=== PATIENT | male | born 1985 | race Caucasian/White ===

== ENCOUNTER → 2019-09-19 | Outpatient (CLI) | payer BC | LOC: BHSO 10:51 | DX: F33.0 Major depressive disorder, recurrent, mild (principal) ==

== ENCOUNTER → 2019-10-02 | Outpatient (CLI) | payer BC | LOC: BHSO 09-19 10:54 | DX: F33.0 Major depressive disorder, recurrent, mild (principal) ==

== ENCOUNTER → 2019-10-30 | Outpatient (CLI) | payer BC | LOC: BHSO 08:56 | DX: F33.41 Major depressive disorder, recurrent, in partial remission (principal) | CPT/HCPCS: G0463 ==

== ENCOUNTER → 2019-11-03 | Outpatient (CLI) | payer BC | LOC: BHSO 13:52 | DX: F33.0 Major depressive disorder, recurrent, mild (principal) ==

== ENCOUNTER → 2019-11-25 | Outpatient (CLI) | payer BC | LOC: BHSO 15:46 | DX: F33.0 Major depressive disorder, recurrent, mild (principal) ==

== ENCOUNTER → 2020-02-20 | Outpatient (CLI) | payer BC | LOC: BHSO 16:17 | DX: F41.1 Generalized anxiety disorder (principal) | CPT/HCPCS: G0463 ==